=== PATIENT | male | born 1975 | race Caucasian/White ===

== ENCOUNTER 2025-03-14 05:38 | Emergency (ER) | payer OTHER, SELFPAY ==
[2025-03-14 05:38] VITALS: BMI 33.2
[2025-03-14 05:45] VITALS: BP 170/105
[2025-03-14 05:57] VITALS: BP 161/93
[2025-03-14 06:00] VITALS: BP 159/99
[2025-03-14 06:12] LABS: Hematocrit 43.7 % (39.0-52.0); Hemoglobin 15.4 g/dL (13.0-18.0); Mean Corp Hgb Conc. 35.2 g/dL (33.0-37.0); Mean Corpuscular Volume 90.7 fL (80.0-94.0); Nucleated Red Blood Cells % 0 % (-); Platelet Count 181 10^3/uL (130-400); Red Cell Dist. Width 13.0 % (11.5-14.5)
[2025-03-14 06:29] LABS: ALT (SGPT) 38 U/L (0-50); AST (SGOT) 34 U/L (17-59); Albumin 4.6 g/dl (3.5-5.0); Alkaline Phosphatase 52 U/L (38-126); Blood Urea Nitrogen 18 mg/dl (9-20); Calcium 9.2 mg/dl (8.4-10.2); Carbon Dioxide 26 mmol/L (22-30); Chloride 106 mmol/L (98-107); Estimated Creatinine Clearance 103 ml/min; Glucose 96 mg/dl (70-99); Potassium 4.2 mmol/L (3.5-5.1); Sodium 138 mmol/L (135-145); Total Protein 7.7 g/dl (6.3-8.2); eGFR > 60.00
--- NOTE | 2025-03-14 06:31 | ED.GENMED ---
History of Present Illness
General
Chief Complaint: Chest Problem
Time Seen by Provider: 03/14/25 06:06
History of Present Illness
History of Present Illness:
49-year-old male with history of hypertension presenting to the emergency department for ongoing chest pain. Patient reports for the past several months he has been having chest pain. Notes that he feels the pain every day, left side of the chest.
Denies any radiation of the pain. Reports at baseline it is a 'poking 'sensation, however sometimes becomes more severe. He felt the pain this morning, however notes that it was not any worse than typical. He feels that he has been neglecting
himself which prompted him to come to the hospital for further assessment. He denies any personal history of cardiac disease or any family history. He does note some dyspnea with going up stairs. He denies any lower extremity swelling. He denies
any cough or fever. He has never seen a medical collections representative. He denies exertional component to his chest pain. He takes lisinopril for his blood pressure and notes compliance. He denies additional acute medical complaints
Past History
Past History
ED Past Medical History: None
ED Past Surgical History: None
Social History
Tobacco: Non-smoker
Personal:
Employment: Employed
Phy Exam
Physical Exam
Physical Exam:
General: Well-appearing, no clinical signs of dehydration, nontoxic and in no acute distress
HEENT: protecting airway
Neck: appears supple
CV: Normal heart rate, regular rhythm
Resp: No accessory muscle use, no increased work of breathing, lungs clear to auscultation bilaterally
Abd: No distention
Extremities: No deformities, no swelling
Neuro: alert, no focal neurologic deficit
: deferred
Rectal: deferred
Psych: Normal affect
Skin: Intact
Course
Orders/Labs/Results
Orders:
Orders
03/14/25 05:50
ECG [Electrocardiogram (*1)] Urgent
Reason for Study: Chest Pain
EKG- Treatment ONCE
03/14/25 05:58
Complete Blood Count/With Diff Urgent
Comprehensive Metabolic Panel Urgent
Troponin I Urgent
03/14/25 06:25
CR Chest - 2 Views Urgent
Comment:
Reason For Exam: CP
Abnormal Lab Results
03/14/25
05:58
MCH 32.0 H pg
(27.0-31.0)
Immature Gran % 0.6 H %
(0-0.5)
Monocytes % 10.6 H %
(1.7-9.3)
03/14/25 05:58
03/14/25 05:58
Vital Signs
Initial and Last Documented VS:
Initial Vital Signs
Temp Pulse Resp BP Pulse Ox
97.8 F 80 22 170/105 97
03/14/25 05:45 03/14/25 05:45 03/14/25 05:45 03/14/25 05:45 03/14/25 05:45
Last Documented Vital Signs
Temp Pulse Resp BP Pulse Ox
97.8 F 79 12 159/99 97
03/14/25 05:45 03/14/25 06:30 03/14/25 06:30 03/14/25 06:00 03/14/25 06:33
MDM/Problems Addressed
MDM/Problems Addressed:
49-year-old male with past medical hypertension presenting to the emergency department for left-sided chest pain. Vital signs on arrival are significant for mild hypertension, however patient due to take his blood pressure medication in a few hours.
On exam patient is resting comfortably, no acute distress or discomfort. Benign cardiac and pulmonary exam. EKG obtained on arrival, nonischemic. Notes that this pain has been ongoing for months, no worse today than typical. Given duration of
symptoms and reassuring EKG, lower suspicion for ACS. However, patient does have some cardiac risk factors will plan for laboratory analysis and chest x-ray imaging. Patient afebrile, nontoxic with lower suspicion for infectious pathology. No
present PE risk factors, no respiratory symptoms, without present concern for PE. Will continue to closely monitor
08:15 - Labs unremarkable, undetectable troponin. Chest x-ray without acute cardiopulmonary disease. On reassessment patient remains stable. Feel stable for discharge, however given duration of symptoms, feel patient warrants outpatient
cardiology follow-up. Advising follow-up for possible stress testing. Return precautions discussed and patient verbalized understanding
*Pulse Oximetry
SaO2: 97
Oxygen Mode of Delivery: Room air
Patient hypoxic: no
*EKG
Interpreted by ED Provider?: Yes
EKG Intrepretation Date: 03/14/25
EKG Intrepretation Time: 06:47
Interpretation: normal
Comparison EKG: no comparison EKG present
Heart Rate: 72
Rate: normal
Rhythm: sinus
[place]: normal axis
Interval: normal interval
QRS Pattern: normal QRS
Ischemia: no ischemia
*Critical Care Note
Total Time (30-74mins, 75-104mins- exclusive of procedures): Not Applicable
ED Attending Note
-
Portions of this chart may have been created with voice recognition software.� Occasional wrong word or��sound alike� substitutions may have occurred due to the inherent limitations of voice recognition software.
Discharge Plan
Departure
Patient Disposition: Home (Routine Discharge)
Date of Disposition: 03/14/25
Time of Disposition: 08:18
Patient with high blood pressure during this ER visit?: Yes
Condition: Good
Discharge Problem:
Chest pain
Instructions: Chest Pain (DC), BLOOD PRESSURE
Referrals:
UNKNOWN - PT DOES,NOT KNOW [Family Provider]
Juan M Burch MD [Active, Cardiology]
Activity Restrictions/Additional Instructions:
You were seen in the emergency department for chest pain
You were found to have reassuring EKG and laboratory analysis. We recommend a follow-up with a medical collections representative.
Please follow-up closely with your primary care physician.
Return to the emergency department for any worsening of your symptoms, or any development of chest pain, difficulty breathing, abdominal pain with persistent vomiting and inability to tolerate food or liquid by mouth (concern for dehydration),
weakness, headache or confusion, fever greater than 100.4, or any additional symptoms that are concerning to you.
Thank you for choosing [facility].
Interventions
Interventions:
*Risk Screen - Suicide Last Done: 03/14/25 05:45
*General Assessment Last Done: 03/14/25 06:27
*Neglect/Abuse Screening Last Done: 03/14/25 05:45
*ED- Fall Risk Assessment Last Done: 03/14/25 06:27
*ED COVID-19 Vaccine History Last Done: 03/14/25 06:27
ED- Cardiac Assessment Last Done: 03/14/25 06:25
ED- Pulmonary Assessment Last Done: 03/14/25 06:25
Discharge Date and Time
Print Language: [id number]
[2025-03-14 06:41] LABS: Troponin I < 0.012 ng/ml
[2025-03-14 07:00] VITALS: BP 166/94
[2025-03-14 08:42] VITALS: BP 145/81
== END 2025-03-14 08:44 | disposition home or self-care (01) ==
LOC: EMR 05:38
PROVIDERS: Student in an Organized Health Care Education/Training Program; EMERGENCY PHYSICIAN Student in an Organized Health Care Education/Training Program
DX: R07.89 Other chest pain (principal); I10 Essential (primary) hypertension
CPT/HCPCS: 99283; 71046; 80053; 84484; 85025; 93005

== ENCOUNTER → 2025-07-02 15:09 | Outpatient (REF) | payer OTHER, SELFPAY | LOC: RCS 15:09 | PROVIDERS: ATTENDING PHYSICIAN Internal Medicine | DX: I10 Essential (primary) hypertension (principal); R07.9 Chest pain, unspecified | CPT/HCPCS: 93017 ==